=== PATIENT | male | born 1985 | race Two or more races ===

== ENCOUNTER 2017-12-25 04:40 | Emergency (ER) | payer OTHER ==
[2017-12-25] MEDS: DIPHENHYDRAMINE 25 MG CAP PO (05:30)
== END 2017-12-25 05:33 | disposition home or self-care (01) ==
LOC: FTE 04:40
DX: S80.861A Insect bite (nonvenomous), right lower leg, initial encounter (principal); S80.862A Insect bite (nonvenomous), left lower leg, initial encounter; F17.210 Nicotine dependence, cigarettes, uncomplicated; W57.XXXA Bitten or stung by nonvenomous insect and other nonvenomous arthropods, initial encounter; Y92.9 Unspecified place or not applicable
CPT/HCPCS: 99283; Z7502

== ENCOUNTER 2018-01-05 02:39 | Emergency (ER) | payer OTHER | END 2018-01-05 04:34 | disposition home or self-care (01) | LOC: FTE 02:39 | DX: H10.9 Unspecified conjunctivitis (principal); J32.9 Chronic sinusitis, unspecified; Z87.891 Personal history of nicotine dependence | CPT/HCPCS: 99283 ==